=== PATIENT | female | born 1985 | race Caucasian/White ===

== ENCOUNTER 2021-08-25 06:35 | Emergency (ER) | payer BC, OTHER ==
[2021-08-25 06:49] VITALS: BP 111/72; PULSE 97; TEMP 97.6; BMI 26.9
[2021-08-25 08:51] LABS: EPI CELLS 12 /uL (0-25.1); HCG,QUALITATIVE URINE Negative; HYALINE CASTS 10 /uL (0-3.1); PH,URINE 5.5 (5.0-8.0); URINE APPEARANCE TURBID; URINE BACTERIA 54 /uL (0-1359); URINE BILIRUBIN NEGATIVE (NEGATIVE); URINE COLOR DK YELLOW; URINE GLUCOSE (UA) NEGATIVE (NEGATIVE); URINE KETONE TRACE (NEGATIVE); URINE LEUK ESTERASE 3+ (NEGATIVE); URINE NITRITE NEGATIVE (NEGATIVE); URINE PROTEIN 2+ (NEGATIVE); URINE UROBILINOGEN 0.2 mg/dL (0.2-1.0); URINE WBC 14167 /uL (0-25.8)
[2021-08-25 10:07] LABS: URINE RBC 8425.4 /uL (0-23.9); YEAST NO SEEN (NEGATIVE)
== END 2021-08-25 09:10 | disposition home or self-care (01) ==
LOC: JER 06:35
DX: N39.0 Urinary tract infection, site not specified (principal)
CPT/HCPCS: 36415; 81003; 84703; 87086; 87491; 87591; 99283-25